=== PATIENT | male | born 1970 | race Caucasian/White ===

== ENCOUNTER 2023-07-15 08:04 | Emergency (ER) | payer BC, SELFPAY ==
[2023-07-15 08:10] VITALS: BP 122/70; PULSE 54; RESP 20; TEMP 36.6; O2SAT 97
--- NOTE | 2023-07-15 08:23 | ED.ALCOHOL ---
HPI - Alcohol General Chief Complaint: Alcohol Stated Complaint: ETOH Time Seen by Provider: 07/15/23 08:08 Source: patient, family and RN notes reviewed Mode of arrival: ambulatory Limitations: no limitations History of Present Illness HPI narrative: This is a 52 year old male with history of alcoholism, anxiety and depression who presents for evaluation of rehab. Patient's states patient was gone for 1 week and she just picked him up in [employer] Parking lot. She has brought him to hospital because she wants him to get rehab. PAtient admits to drinking alcohol prior to arrival. He denies history of rehab or AA in the past. He states he will need to stop drinking to keep his family although he seems unsure if he wants to stop now. He denies any complaints at this time. He reports history of tremors at time when he stops drinking but he denies history of DT or seizure. Related Data Home Medications Medication Instructions Recorded Confirmed omeprazole 20 mg tablet,delayed 20 mg PO DAILY 12/29/21 03/30/23 release Allergies Allergy/AdvReac Type Severity Reaction Status Date / Time No Known Allergies Allergy Verified 03/30/23 09:27 Review of Systems Review of Systems: All systems reviewed & are unremarkable except as noted in HPI and below PMFSH Past Medical History Medical History Alcoholic Behavior-irritability COVID-19 (~08/2020) COVID-19 Overweight (BMI 25.0-29.9) Surgical History Surgical History H/O hernia repair (~2011) Family History Family History Father Hypertension Family history of elevated blood lipids Family history of coronary artery disease Social History Social History Smoking status: Never smoker Second hand tobacco smoke exposure: No Alcohol intake: current Drinks per week: 28 Alcohol use details: Shots of whiskey every day. Substance use: never Substance use type: does not use Lack of Transportation: No Lack of Food: Never True Current Housing: I Have Housing Concerned About Future Housing: No Difficulty Paying Gas/Electric Bills: No Difficulty Paying for Meds: No Currently Unemployed: No Education: Bachelor's Degree Difficulty w/ Childcare or Family Care: No Living arrangements: with family Gender identity (if verbalized by the patient): Male Exam Const: General: no acute distress and alert Nutritional Appearance: well nourished Orientation/consciousness: patient oriented x3 Eyes: EOM: EOMs intact bilaterally Chest: Chest palpation & inspection: normal inspection of the chest Resp: Effort & Inspection: normal respiratory effort Auscultation: clear to auscultation bilaterally Cardio: Rate: regular rate Rhythm: regular rhythm Heart sounds: no murmurs GI: GI Palp: Yes Soft to palpation, No Tenderness to palpation present (GI), No Guarding due to palpation present (GI) and No Rigid due to palpation Auscultation: normal bowel sounds Back/Spine/Pelvis: Back: no CVA tenderness Skin: General skin exam: normal color Rashes: no rashes Wounds: no wounds Neuro: General: patient oriented x3, moves all extremities and CN's II-XI intact bilaterally Extrem: General: normal to inspection Psych: Mental Status: mental status grossly normal Affect: normal affect Attitude: cooperative Course Reevaluation(s) Date: 07/15/23 Time: 08:37 Consultations Consultation #1: I discussed case with Dr. Zhao who is aware of patient and I discussed patient will need assistance with rehab Date: 07/15/23 Time: 08:37 Vital Signs Vital signs: Vital Signs Temperature 97.9 F 07/15/23 08:10 Pulse Rate 54 L 07/15/23 08:10 Respiratory Rate 20 07/15/23 08:10 Blood Pressure 122/70 07/15/23 08:10 Pulse Oximetry 97 1
--- NOTE | 2023-07-15 08:31 | PC.NURSE ---
Resources and handouts given for detox and rehab facilities to patient and .
== END 2023-07-15 08:45 | disposition home or self-care (01) ==
PROVIDERS: Emergency Provider General Practice; PCP Family Medicine
DX: F10.20 Alcohol dependence, uncomplicated (principal); Y90.9 Presence of alcohol in blood, level not specified; E66.3 Overweight; Z68.25 Body mass index [BMI] 25.0-25.9, adult; F41.9 Anxiety disorder, unspecified; F32.A Depression, unspecified; Z86.16 Personal history of COVID-19
CPT/HCPCS: 99283

== ENCOUNTER 2023-11-07 00:10 | Day surgery (SDC) | payer BC, SELFPAY ==
[2023-10-15 11:14] VITALS: BMI 25.0
--- NOTE | 2023-11-05 11:45 | SUR.PREOP ---
Patient called regarding upcoming procedure. Message left on pt's voicemail regarding appointment times.
[2023-11-07 07:30] VITALS: BP 145/98; PULSE 87; RESP 19; TEMP 36.6; O2SAT 98
[2023-11-07] MEDS: LACTATED RINGERS 1,000 ML 150 ML IV CONT (07:43)
--- NOTE | 2023-11-07 08:10 | WPDANESEPPF ---
Anes - Initial Pre Proc Eval Procedure: Operation Date: 11/07/23 08:30 Proposed Procedures p Colonoscopy - Aureliano Cuellar MD Date/Time: 11/07/23 08:10 Surgeon: Aureliano Cuellar MD Pre Op Diagnosis: hx of colon polyps Patient Data Age: 52 Gender: M Height: 1.91 m Weight: 96.3 kg Last Vital Signs Temp 97.9 F 11/07/23 07:30 Pulse 87 11/07/23 07:30 Resp 19 11/07/23 07:30 BP 145/98 H 11/07/23 07:30 Pulse Ox 98 11/07/23 07:30 O2 Del Method Room Air 11/07/23 07:30 Allergies Allergy/AdvReac Type Severity Reaction Status Date / Time No Known Allergies Allergy Verified 11/07/23 07:28 Home Medications Medication Instructions Recorded Confirmed Type omeprazole 20 mg tablet,delayed 20 mg PO DAILY 12/29/21 10/15/23 History release amitriptyline-chlordiazepoxide 25 1 tablet PO BID PRN abdominal 03/07/23 10/15/23 Rx mg-10 mg tablet discomfort #180 tabs propranolol 60 mg capsule,24 60 mg PO DAILY #90 caps 03/30/23 10/15/23 Rx hr,extended release (Inderal LA) paroxetine HCl 40 mg tablet (Paxil) 40 mg PO DAILY #90 tabs 06/18/23 10/15/23 Rx Patient hx anesthesia problems: none Family hx anesthesia problems: none Results Review: All pre-operative results and documents have been reviewed as part of the pre-operative evaluation. [facility] Past Medical History Medical History (Updated 09/05/23 @ 12:57 by Iban Zhao MD) Alcoholic Behavior-irritability COVID-19 (~08/2020) COVID-19 Overweight (BMI 25.0-29.9) Personal history of colonic polyps Surgical History Surgical History H/O hernia repair (~2011) Family History Family History Father Hypertension Family history of elevated blood lipids Family history of coronary artery disease Social History Social History Smoking status: Never smoker Second hand tobacco smoke exposure: No Alcohol intake: current Drinks per week: 28 Alcohol use details: 4/5 shots of whiskey a day Substance use: never Substance use type: does not use Lack of Transportation: No Lack of Food: Never True Current Housing: I Have Housing Concerned About Future Housing: No Difficulty Paying Gas/Electric Bills: No Difficulty Paying for Meds: No Currently Unemployed: No Education: Bachelor's Degree Difficulty w/ Childcare or Family Care: No Living arrangements: with family Gender identity (if verbalized by the patient): Male Anes - Eval Final PreProcedure Day of Procedure 11/07/23 08:10 Patient weight: normal Heart: regular rate and rhythm Lungs: clear to auscultation Airway: Mallampati scale class II Neurological: alert and oriented Last oral intake: >/= 8 hours ASA classification: II Emergent: no Anesthetic plan: proceed Anesthesia type and monitoring: general GIVS and standard monitoring Results Review: All pre-operative results and documents have been reviewed as part of the pre-operative evaluation. Informed Consent: The patient's anesthetic plan and its attendant risks and benefits were discussed with the patient/family/POA. Questions were solicited and answers provided to the satisfaction of the patient/family/POA.
--- NOTE | 2023-11-07 08:11 | PM.HPGS ---
History of Present Illness History of Present Illness Consent: Risks, benefits, and alternatives have been discussed and questions answered. Patient agrees to proceed with procedure. Chief complaint: hx of colon polyps Narrative: Carlin Burns is a 52 year old male with colon polyp in 2018 Review of Systems Constitutional: Constitutional: Denies headache(s) and Denies weakness Eyes: Eyes: Denies blurry vision ENT: Reports Normal hearing present, Denies headache(s) and Denies neck pain Cardiovascular: Cardiovascular: Denies chest pain and Denies dyspnea Respiratory: Respiratory: Denies dyspnea Gastrointestinal: Gastrointestinal: Reports no additional gastrointestinal complaints Genitourinary: Genitourinary: Denies dysuria Musculoskeletal: Musculoskeletal: Denies neck pain Integumentary/Breasts: Skin/Breast: Denies dry skin Neurologic: Reports Normal hearing present, Denies headache(s) and Denies weakness Psychiatric: Psychiatric: Denies anxiety Endocrine: Endocrine: Denies change in body appearance Hematologic/Lymphatic: Hematologic/Lymphatic: Denies easy bleeding Allergic/Immunologic: Allergic/Immunologic: Denies urticaria PMF Past Medical History Medical History (Updated 09/05/23 @ 12:57 by Iban Zhao MD) Alcoholic Behavior-irritability COVID-19 (~08/2020) COVID-19 Overweight (BMI 25.0-29.9) Personal history of colonic polyps Surgical History Surgical History H/O hernia repair (~2011) Family History Family History Father Hypertension Family history of elevated blood lipids Family history of coronary artery disease Social History Social History Smoking status: Never smoker Second hand tobacco smoke exposure: No Alcohol intake: current Drinks per week: 28 Alcohol use details: 4/5 shots of whiskey a day Substance use: never Substance use type: does not use Lack of Transportation: No Lack of Food: Never True Current Housing: I Have Housing Concerned About Future Housing: No Difficulty Paying Gas/Electric Bills: No Difficulty Paying for Meds: No Currently Unemployed: No Education: Bachelor's Degree Difficulty w/ Childcare or Family Care: No Living arrangements: with family Gender identity (if verbalized by the patient): Male Meds Home Medications and Allergies Home Medications Medication Instructions Recorded Confirmed Type omeprazole 20 mg tablet,delayed 20 mg PO DAILY 12/29/21 10/15/23 History release amitriptyline-chlordiazepoxide 25 1 tablet PO BID PRN abdominal 03/07/23 10/15/23 Rx mg-10 mg tablet discomfort #180 tabs propranolol 60 mg capsule,24 60 mg PO DAILY #90 caps 03/30/23 10/15/23 Rx hr,extended release (Inderal LA) paroxetine HCl 40 mg tablet (Paxil) 40 mg PO DAILY #90 tabs 06/18/23 10/15/23 Rx Allergies Allergy/AdvReac Type Severity Reaction Status Date / Time No Known Allergies Allergy Verified 11/07/23 07:28 Vital Signs Vital Signs - 24 hr 11/07/23 07:30 Temperature 97.9 F Pulse Rate 87 Respiratory Rate 19 Blood Pressure 145/98 H Pulse Oximetry 98 Oxygen Delivery Room Air Exam Const: General: comfortable and no acute distress HENMT: Face/Nose/Sinus: Normal nares present Eyes: General: appearance normal, both eyes and all related structures Neck: Neck: no JVD Resp: Auscultation: clear to auscultation bilaterally Cardio: Rate: regular rate Rhythm: regular rhythm GI: Inspection: non-distended GI Palp: Yes Soft to palpation Skin: General skin exam: normal color Neuro: General: gait normal Speech: normal speech Extrem: General: normal to inspection Psych: Mental Status: mental status grossly normal Assessment and Plan Assessment and plan (1) Colon polyp: Code(s): K63.5 - Polyp of colon
[2023-11-07 08:33] VITALS: BP 124/89; PULSE 78; RESP 18; O2SAT 94
[2023-11-07 08:43] VITALS: BP 147/95; PULSE 75; RESP 19; O2SAT 100
[2023-11-07 08:53] VITALS: BP 141/97; PULSE 72; RESP 18; O2SAT 100
== END 2023-11-07 09:05 | disposition home or self-care (01) ==
PROVIDERS: PCP Family Medicine; Visit Provider Internal Medicine Gastroenterology
PROC: 0DJD8ZZ Inspection of Lower Intestinal Tract, Via Natural or Artificial Opening Endoscopic (ICD-10-PCS; CPT 45378; principal; 2023-11-07 08:30)
DX: Z12.11 Encounter for screening for malignant neoplasm of colon (principal); K64.8 Other hemorrhoids; Z86.010 Personal history of colon polyps; F10.20 Alcohol dependence, uncomplicated
CPT/HCPCS: 45378; J2704; J7120

== ENCOUNTER 2024-06-27 10:15 | Emergency (ER) | payer BC, SELFPAY ==
[2024-06-27 10:25] VITALS: BP 137/98; PULSE 113; RESP 16; TEMP 37; O2SAT 97
--- NOTE | 2024-06-27 11:08 | ED.URI ---
HPI - URI/Sore Throat General Chief Complaint: Upper Respiratory Infection Stated Complaint: Sore Throat Time Seen by Provider: 06/27/24 11:01 Source: patient and RN notes reviewed Mode of arrival: ambulatory Limitations: no limitations History of Present Illness HPI Narrative: Patient presents today complaining of a 2 day history of sore throat, subjective fever, chills, sweats, nasal congestion. Currently rates his pain 8/10 has been taking NyQuil without relief. Related Data Allergies Allergy/AdvReac Type Severity Reaction Status Date / Time No Known Allergies Allergy Verified 06/27/24 10:22 Review of Systems Review of Systems: CONSTITUTIONAL: Denies body aches. + subjective fever, sweats, chills EYES: Denies visual changes, redness, or discharge. ENT: Denies rhinorrhea, or otalgia.+ congestion, sore throat CARDIOVASCULAR: Denies chest pain, palpitations, or edema. RESPIRATORY: Denies cough or dyspnea. GASTROINTESTINAL: Denies abdominal pain, nausea, vomiting, or diarrhea. GENITOURINARY: Denies dysuria or hematuria. SKIN: Denies rash, itching, or wounds. MUSCULOSKELETAL: Denies back pain, joint pain, or myalgia. NEUROLOGIC: Denies numbness, tingling, or weakness.+ headache PSYCH: Denies depression or anxiety. [facility] Past Medical History Medical History Alcoholic Behavior-irritability COVID-19 (~08/2020) COVID-19 Overweight (BMI 25.0-29.9) Personal history of colonic polyps Surgical History Surgical History H/O hernia repair (~2011) Family History Family History Father Hypertension Family history of elevated blood lipids Family history of coronary artery disease Social History Social History Smoking status: Never smoker Second hand tobacco smoke exposure: No Alcohol intake: current Drinks per week: 28 Alcohol use details: 4/5 shots of whiskey a day Substance use: never Substance use type: does not use Lack of Transportation: No Lack of Food: Never True Current Housing: I Have Housing Concerned About Future Housing: No Difficulty Paying Gas/Electric Bills: No Difficulty Paying for Meds: No Currently Unemployed: No Education: Bachelor's Degree Difficulty w/ Childcare or Family Care: No Living arrangements: with family Gender identity (if verbalized by the patient): Male Comments At time of signature, I have reviewed and agree with nursing past medical, surgical, social and family history unless otherwise noted. Please see nursing chart for further information. There is no relevant family history pertinent to the presenting complaint Exam Narrative: GENERAL: Mildly ill appearing, well-nourished, and in no acute distress. HEAD: Normocephalic, atraumatic. EYES: EOMI. No redness or drainage. Conjunctivae normal. ENT: Mucous membranes pink and moist. Nares congested with rhinorrhea. TMs normal bilaterally. Throat normal. Uvula midline. NECK: Normal AROM. Supple. No lymphadenopathy. CHEST: No respiratory distress. Clear to auscultation. HEART: Regular rate and rhythm. No murmur appreciated. EXTREMITIES: Normal range of motion. No edema. SKIN: Warm, dry, no rash. Capillary refill normal. Normal skin turgor. NEURO: No focal deficits. Alert and oriented x3. Gait steady. PSYCH: Normal affect. No signs of depression or anxiety. Course Course Level of Care: Express Care Visit Vital Signs Vital signs: Vital Signs Temperature 98.6 F 06/27/24 10:25 Pulse Rate 113 H 06/27/24 10:25 Respiratory Rate 16 06/27/24 10:25 Blood Pressure 137/98 H 06/27/24 10:25 Pulse Oximetry 97 06/27/24 10:25 Oxygen Delivery Room Air 06/27/24 10:25 Temperature 98.6 F 06/27/24 10:25 Pulse Rate 113 H 06/27
[2024-06-30 14:24] LABS: EDSTREPNEGPOS1 Negative (Negative)
== END 2024-06-27 11:16 | disposition home or self-care (01) ==
PROVIDERS: Emergency Provider Nurse Practitioner; PCP Family Medicine
DX: J06.9 Acute upper respiratory infection, unspecified (principal); Z86.16 Personal history of COVID-19
CPT/HCPCS: 87081; 87880; 99213; G0463

== ENCOUNTER 2024-07-19 09:37 | Emergency (ER) | payer BC, SELFPAY ==
--- NOTE | ~2024-07-19 | XR_ITS ---
EXAMINATION: XR chest 2V 07/19/2024 10:28 INDICATION: Persistent cough PROCEDURE: 2 view chest COMPARISON: 11/14/2014 FINDINGS: The lungs are clear. The cardiomediastinal silhouette is within normal limits. There are no pleural effusions. There is no pneumothorax suspected. IMPRESSION: 1: NO ACUTE CARDIOPULMONARY DISEASE. Reviewed, dictated and finalized at location B.
[2024-07-19 09:46] VITALS: BP 123/94; PULSE 73; RESP 20; TEMP 37; O2SAT 94
--- NOTE | 2024-07-19 17:24 | ED.URI ---
HPI - URI/Sore Throat General Chief Complaint: Upper Respiratory Infection Stated Complaint: deep cough/sob Time Seen by Provider: 07/19/24 09:48 Source: patient, RN notes reviewed and old records reviewed Mode of arrival: ambulatory Limitations: no limitations History of Present Illness HPI Narrative: 53-year-old male to Express Care with complaint of cough, stuffy nose, subjective fever, shortness of breath. Patient reports symptoms have been Present for 2-3 weeks. Patient seen here 2 weeks ago and diagnosed with viral infection. Patient reports that 2 of his sons have bacterial pneumonia. Patient is certain that he has bacterial pneumonia. Patient has been treating at home with Mucinex and ibuprofen. Patient resting comfortably in exam room in no acute distress. Patient able to speak in full sentences without difficulty and maintained secretions. Respirations even and nonlabored. Related Data Allergies Allergy/AdvReac Type Severity Reaction Status Date / Time No Known Allergies Allergy Verified 06/27/24 10:22 Review of Systems Review of Systems: All systems reviewed & are unremarkable except as noted in HPI and below Constitutional: Constitutional: Reports as per HPI and Reports fever(s) ( subjective) Eyes: Eyes: Reports no additional eye complaints ENT: Reports as per HPI and Reports nasal congestion Cardiovascular: Cardiovascular: Denies chest pain and Denies dyspnea Respiratory: Respiratory: Reports no additional respiratory complaints, Reports cough and Reports dyspnea Musculoskeletal: Musculoskeletal: Reports no additional musculoskeletal complaints Neurologic: Reports system reviewed and no additional complaints, except as documented Psychiatric: Psychiatric: Reports no additional psychiatric complaints [facility] Past Medical History Medical History Alcoholic Behavior-irritability COVID-19 (~08/2020) COVID-19 Overweight (BMI 25.0-29.9) Personal history of colonic polyps Surgical History Surgical History H/O hernia repair (~2011) Family History Family History Father Hypertension Family history of elevated blood lipids Family history of coronary artery disease Social History Social History Smoking status: Never smoker Second hand tobacco smoke exposure: No Alcohol intake: current Drinks per week: 28 Alcohol use details: 4/5 shots of whiskey a day Substance use: never Substance use type: does not use Lack of Transportation: No Lack of Food: Never True Current Housing: I Have Housing Concerned About Future Housing: No Difficulty Paying Gas/Electric Bills: No Difficulty Paying for Meds: No Currently Unemployed: No Education: Bachelor's Degree Difficulty w/ Childcare or Family Care: No Living arrangements: with family Gender identity (if verbalized by the patient): Male Comments At the time of my signature, I reviewed and agree with the nursing past medical, surgical, social, and family history. There is no relevant family history pertinent to the patient complaint. Exam Const: General: cooperative, comfortable, no acute distress, alert, tired appearing and well nourished Nutritional Appearance: well nourished Orientation/consciousness: patient oriented x3 Limitations: no limitations HENMT: Head: normal to inspection Ears: external ears normal Face/Nose/Sinus: Normal external nose present, Abnormal mucous membranes and turbinates present erythematous, normal facial exam, No erythema and No edema Face and sinus: normal facial exam, no erythema and no edema Mouth: Yes Normal oral and palatal mucosa present Throat: posterior oropharynx abnormal erythema and postnasal drainage Eyes: General: appearance normal, bot
== END 2024-07-19 10:59 | disposition home or self-care (01) ==
PROVIDERS: Emergency Provider Nurse Practitioner Family; PCP Family Medicine
DX: J06.9 Acute upper respiratory infection, unspecified (principal); Z86.16 Personal history of COVID-19
CPT/HCPCS: 71046; 99213; G0463

== ENCOUNTER 2024-11-16 13:46 | Emergency (ER) | payer BC, SELFPAY ==
--- OUTSIDE RECORDS SUMMARY | 2024-11-16 13:49 | XMS_ITS | Continuity of Care Document ---
Author Organization [facility] Address [address] [address] [place] [address] Phone Care Team Providers Care Brick Carrier Name Role Phone Marcelino Wood MD Unavailable Unavailable Allergies, Adverse Reactions, Alerts Substance Reaction Status Criticality No Known Allergies Active No Inform ation Medications Medication Instructions Dosage Effective Dates (start - stop) Status Comments Relpax 40 mg tablet take 1 tablet (40MG) by oral route as directe 40 MG - Active take one at onset of headache, may repeat x one in two hours, max 2/24 hours propranolol 40 mg tablet take 1 tablet (40MG) by oral route 2 times every day 40 MG - Active Procedures Procedure Date OFFICE/OUTPATIENT VISIT, EST OFFICE/OUTPATIENT VISIT, EST OFFICE/OUTPATIENT VISIT, EST Advance Directives Directive Yes / No Effective Date File Name No Information Encounters Encounter Description Practice Location Reason(s) For Visit Diagnoses Date Provider Providers Copied on Encounter OFFICE/OUTPAT IENT VISIT, [facility], [address] [place], [place] [address] [place], [place], [id number], tel:[phone] [facility] headache (chief complaint)s pot (chief complaint)n donald pain (chief complaint) CervicalgiaH eadacheNevus , non-neoplast ic Israel Benson. [address] [place], [id number], [place]. tel:[phone] Referring Provider: Marcelino Wood, [address] [place], [place], [id number]. tel:[phone] OFFICE/OUTPAT IENT VISIT, EST [facility], [address], [place], [place], [id number], tel:[phone] [facility] elbow pain (chief complaint)s houlder pain (chief complaint) Pain in joint involving shoulder regionPain in joint involving upper arm Israel Benson. [address], [facility], [place], [place], [id number], . tel:[phone] Referring Provider: Marcelino Wood, [address], [place], [place], [id number]. tel:[phone] OFFICE/OUTPAT IENT VISIT, [facility], [address], [place], [place], [id number], tel:[phone] [facility] cough (chief complaint) Bronchitis, Acute Israel Benson. [address], [facility] [address], [place], [place], [id number], . tel:[phone] Referring Provider: Marcelino Wood, [address], [place], [place], [id number]. tel:[phone] Family History Family Member Type Diagnosis Age At Onset Problem (finding) Family history of Coronary artery disease Brother Problem (finding) Alive and well Problem (finding) Family history of Back Pain Payers Payer name Insurance type Covered democrat ID Authoriza tion(s) No Information Social History Type Description Quantity Date Captured Comments Alcohol Use Details beer 1 beer Caffeine Use Details Unknown Tobacco Use Status No Information Smoking Status Never smoker Sex Male Vital Signs Date / Time: Height Weight BMI Pulse Rate Blood Pressure Temperature Respiratory Rate Body Surface Area Head Circumference BMI percentile Pulse Ox Inhaled Ox 9:43 AM 74.00 in 173.75 lbs 22.3 1 kg/m eter (2) 61 /min 128/82 mm[Hg] 98.1 F 18 /min Chief Complaint And Reason For Visit From encounter dated '05/21/2013 08:00'. headache (chief complaint) spot (chief complaint) neck pain (chief complaint) Plan Of Treatment Date Type Action Status Referral Ordered: MRI CERVICAL SPINE W/O & W/DYE ordered Referral Ordered: Ortho Surg ordered Referral Ordered: Referral: Ortho Surg. ordered Referral Ordered: ELBOW XRAY 3+ VIEWS Right ordered History Of Present Illness Encounter Date Complaint History Of Prese nt Illness No Information Instructions Date Instruction Additional Infor mation No Information Assessments Type Assessment Date No Information Mental Status Date Cognitive Assessment Orientation - Fisher ed to time, place, person, situation.
--- OUTSIDE RECORDS SUMMARY | 2024-11-16 13:51 | XMS_ITS | Continuity of Care Document ---
Author Organization [facility] Address [address] [place] [address] [place] [address] Phone Care Team Providers Care Executive Director Of Marketing Name Role Phone Marcelino Wood MD Unavailable Unavailable Allergies, Adverse Reactions, Alerts Substance Reaction Status Criticality No Known Allergies Active No Inform ation Medications Medication Instructions Dosage Effective Dates (start - stop) Status Comments propranolol 40 mg tablet take 1 tablet (40MG) by oral route 2 times every day 40 MG - Active Relpax 40 mg tablet take 1 tablet (40MG) by oral route as directe 40 MG - Active take one at onset of headache, may repeat x one in two hours, max 2/24 hours Procedures Procedure Date OFFICE/OUTPATIENT VISIT, EST OFFICE/OUTPATIENT VISIT, EST OFFICE/OUTPATIENT VISIT, EST Advance Directives Directive Yes / No Effective Date File Name No Information Encounters Encounter Description Practice Location Reason(s) For Visit Diagnoses Date Provider Providers Copied on Encounter OFFICE/OUTPAT IENT VISIT, [facility], [address] [place], [place] [address], [place], [id number], tel:[phone] [facility] headache (chief complaint)s pot (chief complaint)n donald pain (chief complaint) CervicalgiaH eadacheNevus , non-neoplast ic [facility]. [address] [facility] [place] [id number], . tel:[phone] Referring Provider: Marcelino Wood, [address] [place], [place], [id number]. tel:[phone] OFFICE/OUTPAT IENT VISIT, EST [facility], [address], [place], [place], [id number], tel:[phone] [facility] elbow pain (chief complaint)s houlder pain (chief complaint) Pain in joint involving shoulder regionPain in joint involving upper arm Israel Benson. [address], [facility], [place], [place], [id number], . tel:[phone] Referring Provider: Marcelino Wood, [address], [place], [place], [id number]. tel:[phone] OFFICE/OUTPAT IENT VISIT, [facility], [address], [place], [place], [id number], tel:[phone] [facility] cough (chief complaint) Bronchitis, Acute Israel Benson. [address], [facility], [place], [place], [id number], . tel:[phone] Referring Provider: Marcelino Wood, [address], [place], [place], [id number]. tel:[phone] Family History Family Member Type Diagnosis Age At Onset Problem (finding) Family history of Coronary artery disease Brother Problem (finding) Alive and well Problem (finding) Family history of Back Pain Payers Payer name Insurance type Covered alliance party ID Authoriza tion(s) No Information Social History [...] Mental Status Date Cognitive Assessment Orientation - [place] ed to time, place, person, situation.
[2024-11-16 14:05] VITALS: BP 119/86; PULSE 101; RESP 16; TEMP 36.4; O2SAT 95
[2024-11-16 15:05] LABS: EDCOVIDSCREEN Negative (Negative); EDINFLUASCREEN Positive (Negative); EDINFLUBSCREEN Negative (Negative)
--- NOTE | 2024-11-16 15:13 | ED_ITS ---
HPI - General Adult General Chief complaint: Upper Respiratory Infection Stated complaint: Ear Pain/Cough/Shortness of Breath Source: patient Mode of arrival: ambulatory Limitations: no limitations History of Present Illness HPI narrative: Patient presents for evaluation of sick symptoms. Symptoms include productive cough of white sputum, shortness of breath, popping sensation in his ears, feeling off balance, fever, chills, sore throat and diarrhea. Symptom onset six days ago. He denies any nausea or vomiting. His son is being evaluated here for similar symptoms. Does not smoke. He has been taking Tylenol for symptoms. He believes he has an ear infection. Related Data Allergies Allergy/AdvReac Type Severity Reaction Status Date / Time No Known Allergies Allergy Verified 11/16/24 14:40 Review of Systems Review of Systems: CONSTITUTIONAL: Reports fever and chills. EYES: Denies visual changes, redness, or discharge. ENT: Reports sore throat, sinus congestion and drainage. CARDIOVASCULAR: Denies chest pain, palpitations, or edema. RESPIRATORY: Reports cough and shortness of breath GASTROINTESTINAL: Reports diarrhea. Denies nausea or vomiting. GENITOURINARY: Denies dysuria or hematuria. SKIN: Denies rash or itching. MUSCULOSKELETAL: Reports generalized body aches NEUROLOGIC: Reports headache. Denies numbness, dizziness, or weakness. PSYCHIATRIC: Denies anxiety or depression. [facility] Past Medical History Medical History Personal history of colonic polyps COVID-19 Overweight (BMI 25.0-29.9) Behavior-irritability Alcoholic COVID-19 (~08/2020) Surgical History Surgical History H/O hernia repair (~2011) Family History Family History Father Hypertension Family history of elevated blood lipids Family history of coronary artery disease Social History Social History Smoking status: Never smoker Second hand tobacco smoke exposure: No Alcohol intake: current Drinks per week: 28 Alcohol use details: 4/5 shots of whiskey a day Substance use: never Substance use type: does not use Lack of Transportation: No Lack of Food: Never True Current Housing: I Have Housing Concerned About Future Housing: No Difficulty Paying Gas/Electric Bills: No Difficulty Paying for Meds: No Currently Unemployed: No Education: Bachelor's Degree Difficulty w/ Childcare or Family Care: No Living arrangements: with family Gender identity (if verbalized by the patient): Male Exam Narrative: GENERAL: Well-appearing, well-nourished, and in no acute distress. HEAD: Normocephalic, atraumatic. EYES: PERRLA and EOMI. ENT: Nares clear, no rhinorrhea or epistaxis. Mucous membranes moist. Oropharynx without tonsillar hypertrophy exudate or other lesions. Bilateral tympanic membranes are erythematous with middle ear fluid present NECK: Supple. No adenopathy or masses. No carotid bruits or JVD CHEST: Clear to auscultation. No respiratory distress. No wheezes rales or rhonchi HEART: Regular rate and rhythm. No murmur heard. Normal peripheral pulses. ABDOMEN: Soft, nontender, nondistended, normal active bowel sounds. EXTREMITIES: Normal range of motion. No edema. SKIN: Warm, dry, no rash. NEURO: No focal deficits. Alert and oriented x3. PSYCH: Normal mood and affect. Course Course Emergency Course: This is a 53-year-old male who presented for evaluation of sick symptoms. He is influenza A positive. He declined Tamiflu. Will treat otitis media with Augmentin. Increase hydration. Sefw-bzd-sfjtxry agents for symptom management. Advised on limiting intimate contacts specifically at work, as he said he planned to go in to work. I advised against this. He should follow up with his primary care provider and go to the ER for worsening symptoms. Pt in agreement with plan of care. Level of Care: Express Care Visit Vital Signs Vital signs: Vital Signs Temperature 36.4 C 11/16/24 14:05 Pulse Rate 101 H 11/16/24 14:05 Respiratory Rate 16 11/16/24 14:05 Blood Pressure 119/86 11/16/24 14:05 Pulse Oximetry 95 11/16/24 14:05 Oxygen Delivery Room Air 11/16/24 14:05 Temperature 36.4 C 11/16/24 14:05 Pulse Rate 101 H 11/16/24 14:05 Respiratory Rate 16 11/16/24 14:05 Blood Pressure 119/86 11/16/24 14:05 Pulse Oximetry 95 11/16/24 14:05 Oxygen Delivery Room Air 11/16/24 14:05 Medical Decision Making Vital Signs Vital Signs: Vital Signs Temperature 36.4 C 11/16/24 14:05 Pulse Rate 101 H 11/16/24 14:05 Respiratory Rate 16 11/16/24 14:05 Blood Pressure 119/86 11/16/24 14:05 Pulse Oximetry 95 11/16/24 14:05 Oxygen Delivery Room Air 11/16/24 14:05 Temperature 36.4 C 11/16/24 14:05 Pulse Rate 101 H 11/16/24 14:05 Respiratory Rate 16 11/16/24 14:05 Blood Pressure 119/86 11/16/24 14:05 Pulse Oximetry 95 11/16/24 14:05 Oxygen Delivery Room Air 11/16/24 14:05 Lab Data Labs: Lab Results 11/16/24 Range/Units 15:03 POC Influenza A Ag Positive (Negative) POC Influenza B Ag Negative (Negative) POC SARS CoV-2 Ag Negative (Negative) Discharge Plan Discharge Clinical Impression: Influenza A, Otitis media Patient Disposition: Home, Self-Care Condition: Stable Instructions: Antibiotic Form, Influenza (ED), Ear Infection (ED) Patient Language: Slovak Prescriptions: New amoxicillin-pot clavulanate 875-125 mg tablet 1 tablet PO Q12H Qty: 20 0RF No Action omeprazole 20 mg tablet,delayed release (DR/EC) 20 mg PO DAILY Qty: 90 3RF paroxetine HCl [Paxil] 40 mg tablet 40 mg PO DAILY Qty: 90 1RF propranolol [Inderal LA] 60 mg capsule,extended release 24 hr 60 mg PO DAILY Qty: 90 1RF Follow-up/Referrals: Iban Zhao MD [Primary Care Provider] - Stand Alone Forms: Work/School Release IP Time of Disposition: 15:10
== END 2024-11-16 15:20 | disposition home or self-care (01) ==
PROVIDERS: Emergency Provider Nurse Practitioner; PCP Family Medicine
DX: J10.1 Influenza due to other identified influenza virus with other respiratory manifestations (principal); H66.93 Otitis media, unspecified, bilateral; Z20.822 Contact with and (suspected) exposure to COVID-19; Z86.16 Personal history of COVID-19
CPT/HCPCS: 87426; 87804; 99213; G0463

== ENCOUNTER 2025-05-14 14:42 | Emergency (ER) | payer BC, SELFPAY ==
[2025-05-14 14:54] VITALS: BP 133/102; PULSE 94; RESP 16; TEMP 36.5; O2SAT 98
[2025-05-14 15:03] LABS: EDSTREPNEGPOS1 Negative (Negative)
--- NOTE | 2025-05-14 16:38 | ED.URI ---
HPI - URI/Sore Throat General Chief Complaint: Upper Respiratory Infection Stated Complaint: SORE THROAT Time Seen by Provider: 05/14/25 14:45 Source: patient and RN notes reviewed Mode of arrival: ambulatory Limitations: no limitations History of Present Illness HPI Narrative: 54-year-old male presents Express Care complaining of sore throat, congestion, runny nose since this morning. Patient says his son recently had strep throat and wondering if he has strep as well. Patient also reports a mild cough. Patient denies any chest pain, shortness of breath, fevers, body aches, chills, earache, nausea vomiting, diarrhea, or any other symptoms. Patient has not tried any vygp-lut-lmkqawk help with symptoms. Related Data Allergies Allergy/AdvReac Type Severity Reaction Status Date / Time No Known Allergies Allergy Verified 05/14/25 14:58 Review of Systems Review of Systems: CONSTITUTIONAL: Denies fever, chills, body aches, or sweats. EYES: Denies visual changes, redness, or discharge. ENT: Positive for rhinorrhea, congestion, sore throat. Negative for otalgia. CARDIOVASCULAR: Denies chest pain, palpitations, or edema. RESPIRATORY: Positive for cough. Negative for dyspnea. GASTROINTESTINAL: Denies abdominal pain, nausea, vomiting, or diarrhea. GENITOURINARY: Denies dysuria or hematuria. SKIN: Denies rash or itching. MUSCULOSKELETAL: Denies back pain, joint pain, or myalgia. NEUROLOGIC: Denies headache, numbness, or weakness. PSYCHIATRIC: Denies anxiety or depression. All other systems reviewed are negative, except as documented in HPI. [facility] Past Medical History Medical History Personal history of colonic polyps COVID-19 Overweight (BMI 25.0-29.9) Behavior-irritability Alcoholic COVID-19 (~08/2020) Surgical History Surgical History H/O hernia repair (~2011) Family History Family History Father Hypertension Family history of elevated blood lipids Family history of coronary artery disease Social History Social History (Reviewed 05/14/25 @ 16:39 by JEAN Hernandez Smoking status: Never smoker Second hand tobacco smoke exposure: No Alcohol intake: current Drinks per week: 28 Alcohol use details: 4/5 shots of whiskey a day Substance use: never Substance use type: does not use Lack of Transportation: No Lack of Food: Never True Current Housing: I Have Housing Concerned About Future Housing: No Difficulty Paying Gas/Electric Bills: No Difficulty Paying for Meds: No Currently Unemployed: No Education: Bachelor's Degree Difficulty w/ Childcare or Family Care: No Living arrangements: with family Gender identity (if verbalized by the patient): Male Comments At the time of my signature, I reviewed and agree with the nursing past medical, surgical, social, and family history. There is no relevant family history pertinent to the patient complaint. Exam Narrative: GENERAL: This is a well-nourished, well-developed adult, in no apparent distress. They are non ill-appearing, nontoxic appearing. HEAD: normocephalic, atraumatic. EYES: Sclera clear/white. Vision is grossly intact. Conjunctiva normal bilaterally. Extraocular movements intact. EARS: External ears normal, auditory canals clear and without drainage, TMs without erythema or perforation. Hearing grossly intact. NOSE: External nose normal with no obvious nasal discharge, nasal turbinates erythematous, no rhinorrhea. THROAT: Mucous membranes moist, posterior pharynx erythemic, without swelling, no exudate. Uvula is midline. Postnasal drip present. NECK: Neck supple, tender mild cervical lymphadenopathy, no masses or thyromegaly. CARDIOVASCULAR: Regular rate and rhythm without murmurs, gallops, or rubs. RESPIRATORY: Clear to auscultation. Breath sounds equal bilaterally. No wheezes, rales, or rhonchi. SKIN: warm, Dry, intact with no suspicious lesions or rash, good texture and turgor. NEURO: awake, alert, and oriented to person, place and time. There were no obvious focal neurologic abnormalities. EXTREMITIES: No joint tenderness, effusion, or edema noted. BACK: Nontender without deformity. Course Course Emergency Course: Portions of this record may have been created with voice recognition software Level of Care: Express Care Visit Vital Signs Vital signs: Vital Signs Temperature 97.7 F 05/14/25 14:54 Pulse Rate 94 05/14/25 14:54 Respiratory Rate 16 05/14/25 14:54 Blood Pressure 133/102 H 05/14/25 14:54 Pulse Oximetry 98 05/14/25 14:54 Temperature 97.7 F 05/14/25 14:54 Pulse Rate 94 05/14/25 14:54 Respiratory Rate 16 05/14/25 14:54 Blood Pressure 133/102 H 05/14/25 14:54 Pulse Oximetry 98 05/14/25 14:54 MDM - URI/Sore Throat MDM Narrative Medical decision making narrative: Rapid strep negative. A throat culture is pending. Patient's symptoms appear to be likely viral upper respiratory infection. Discussed physical exam findings. Advised supportive measures and signs/symptoms to go to the ER. Pt is appropriate for outpt treatment and f/u. Differential Diagnosis Differential diagnosis: Likely upper respiratory infection, sinusitis, viral infection and pharyngitis Lab Data Attestation: I reviewed the patient's lab results. Labs: Lab Results 05/14/25 Range/Units 15:00 POC Grp A Strep Screen Negative (Negative) Discharge Plan Discharge Clinical Impression: Upper respiratory infection Qualifiers: URI type: unspecified viral URI Qualified Code(s): J06.9 - Acute upper respiratory infection, unspecified Patient Disposition: Home Condition: Stable Instructions: Antibiotic Form, Upper Respiratory Infection (ED) Additional Instructions: Your rapid strep swab was negative today at [facility]. You will be notified in a few days if the culture comes back positive for strep, and appropriate antibiotics will be called in for you at that time. Your symptoms are likely due to a viral illness, which is not treated with antibiotics. Viral symptoms can be present for up to 7-10 days. Use Tylenol or ibuprofen as needed for pain or fevers. You may take ibuprofen 600 mg to 800 mg every 6-8 hours. Do not exceed more than 800 mg of ibuprofen per dose. Do not exceed more than 3200 mg ibuprofen in a day. You may take up to 1000 mg Tylenol every 6-8 hours. Do not exceed 1000 mg per dose, do exceed more than 4000 mg of Tylenol in a day. Rest and stay hydrated. Follow up with your PCP in 5-7 days if symptoms are not improving. Go to the ER immediately if you develop difficulty breathing or swallowing Patient Language: Polish Prescriptions: No Action amitriptyline-chlordiazepoxide 25-10 mg tablet 1 tablet PO BID PRN (Reason: abdominal discomfort) Qty: 180 3RF omeprazole 20 mg tablet,delayed release (DR/EC) 20 mg PO DAILY Qty: 90 3RF paroxetine HCl [Paxil] 40 mg tablet 40 mg PO DAILY Qty: 90 1RF propranolol [Inderal LA] 60 mg capsule,extended release 24 hr 60 mg PO DAILY Qty: 90 1RF Follow-up/Referrals: Iban Zhao MD [Primary Care Provider] - Time of Disposition: 15:05
== END 2025-05-14 15:08 | disposition home or self-care (01) ==
PROVIDERS: PCP Family Medicine
DX: J06.9 Acute upper respiratory infection, unspecified (principal); F10.90 Alcohol use, unspecified, uncomplicated; Z86.16 Personal history of COVID-19
CPT/HCPCS: 87081; 87880; 99213; G0463